=== PATIENT | male | born 1970 ===

== ENCOUNTER → 2017-05-02 | Outpatient (CLI) | payer OTHER ==
[~2017-05-02] VITALS: Ht 152.4 cm; Wt 113.4 kg
[~2017-05-02] MED LIST: COZAAR50 MG
== END | disposition home or self-care (01) ==
LOC: PPHC 10:07
DX: R05 Cough (principal); R09.81 Nasal congestion

== ENCOUNTER 2019-10-31 12:07 | Emergency (ER) | payer OTHER ==
[~2019-10-31] VITALS: Ht 172.7 cm; Wt 100.7 kg
== END 2019-10-31 13:56 | disposition home or self-care (01) ==
LOC: ER 12:07
DX: S61.451A Open bite of right hand, initial encounter (principal); W54.0XXA Bitten by dog, initial encounter; Y93.89 Activity, other specified; Y92.89 Other specified places as the place of occurrence of the external cause; Y99.8 Other external cause status

== ENCOUNTER 2019-11-04 18:52 | Emergency (ER) | payer OTHER ==
[~2019-11-04] VITALS: Ht 172.7 cm; Wt 103.4 kg
[2019-11-04] MEDS ORDERED: DICLOFENAC SODI75 MG PO (20:28)
== END 2019-11-04 21:07 | disposition home or self-care (01) ==
LOC: ER 18:52
DX: L03.113 Cellulitis of right upper limb (principal); S61.451D Open bite of right hand, subsequent encounter; W54.0XXD Bitten by dog, subsequent encounter